=== PATIENT | female | born 1940 | race Caucasian/White ===

== ENCOUNTER → 2017-11-14 | Outpatient (CLI) | payer MEDICARE | END | disposition home or self-care (01) | LOC: CFH 15:38 | PROVIDERS: ATTEND Nurse Practitioner Family | DX: R10.9 Unspecified abdominal pain (principal); M54.9 Dorsalgia, unspecified | CPT/HCPCS: 76770 ==

== ENCOUNTER → 2018-07-03 | Outpatient (CLI) | payer MEDICARE | END | disposition home or self-care (01) | LOC: RAD 12:30 | PROVIDERS: ATTEND Nurse Practitioner Family | DX: E03.1 Congenital hypothyroidism without goiter (principal) | CPT/HCPCS: 70490 ==

== ENCOUNTER → 2019-02-19 | Outpatient (CLI) | payer MEDICARE ==
[~2019-02-19] MED LIST: REGADENOSON 0.4 MG/5 ML SYRINGE ONE
== END | disposition home or self-care (01) ==
LOC: CFH 06:53
PROVIDERS: ATTEND Internal Medicine Cardiovascular Disease
DX: I08.0 Rheumatic disorders of both mitral and aortic valves (principal); I10 Essential (primary) hypertension
CPT/HCPCS: 78452; 93017; 93306; A9502; J2785

== ENCOUNTER 2019-03-07 10:09 | Day surgery (SDC) | payer MEDICARE ==
[~2019-03-07] VITALS: Ht 157.5 cm; Wt 78.0 kg
== END 2019-03-07 13:06 | disposition home or self-care (01) ==
LOC: CACL 10:09
PROVIDERS: ATTEND Internal Medicine Cardiovascular Disease
DX: R55 Syncope and collapse (principal); R07.89 Other chest pain; I10 Essential (primary) hypertension; E03.9 Hypothyroidism, unspecified; E78.5 Hyperlipidemia, unspecified; Z79.890 Hormone replacement therapy; Z79.899 Other long term (current) drug therapy; Z88.0 Allergy status to penicillin; Z88.8 Allergy status to other drugs, medicaments and biological substances; Z85.3 Personal history of malignant neoplasm of breast
CPT/HCPCS: 33285; C1764

== ENCOUNTER 2019-10-19 07:05 | Outpatient (CLI) | payer MEDICARE | END 2019-10-19 23:59 | disposition home or self-care (01) | LOC: CFH 07:05 | PROVIDERS: ATTEND Genetic Counselor, MS | DX: N64.4 Mastodynia (principal) | CPT/HCPCS: 77065; G0279 ==

== ENCOUNTER 2021-02-17 06:25 | Emergency (ER) | payer MEDICARE ==
[~2021-02-17] VITALS: Ht 157.5 cm; Wt 88.1 kg
--- NOTE | 2021-02-17 06:46 | NUR ---
RECTAL BLEEDING FOR 36 HOURS, COLOR IS BIRGHT RED. Addendum: 02/17/21 at 0654 by CLAIRE ASSUMED CARE OF PT. RECTAL BLEEDING FOR 36 HOURS, COLOR IS BIRGHT RED PER PT FOR 36 HOURS. SHE HAS HAD INTERMITTENT NAUSEA AND CRAMPING W/ TENDERNESS IN R/LLQ. BONNIE BARBOUR, CALL LIGHT W/IN REACH.
--- NOTE | 2021-02-17 06:51 | NUR ---
CARE TRANSFERED TO KARON JASON
[2021-02-17] MEDS ORDERED: SODIUM CHLORIDE FLUSH 10ML SYR IVF ONE (07:30)
--- NOTE | 2021-02-17 07:49 | NUR ---
LOOKED ON PT TO START PIV, NOTHING IS PALPABLE AND PT STATES "GOOD LUCK, I AM A HARD STICK LAB CAN'T EVEN DRAW FROM ME. DOCTORS LOOK IN MY FOOT FOR LINES." MD STATES LINE CANNOT WAIT. 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
[2021-02-17 07:59] LABS: BASOPHILS % (AUTO) 0 % (0-1); EOSINOPHILS % (AUTO) 3 % (1-7); LYMPHOCYTES % (AUTO) 21 % (22-44); MEAN PLATELET VOLUME 10.1 fL (7.4-10.4); MONOCYTES % (AUTO) 7 % (2-9); NEUTROPHILS % (AUTO) 69 % (42-75); PLATELET COUNT 189 x10^3/uL (130-400); RED BLOOD COUNT 4.49 x10^6/uL (3.82-5.3); RED CELL DISTRIBUTION WIDTH 13.9 % (9.6-15.2)
[2021-02-17 08:00] LABS: MD NO
[2021-02-17 08:09] LABS: INTERNATIONAL NORMALIZED RATIO 1.01 (0.93-1.1); PROTHROMBIN TIME 10.8 Seconds (9.6-11.5)
[2021-02-17 08:12] LABS: ALBUMIN 3.7 g/dL (3.4-5.0); ANION GAP 6 mmol/L (5-15); CHLORIDE 113 mmol/L (98-107)
[2021-02-17 08:15] LABS: ALANINE AMINOTRANSFERASE 14 U/L (12-78); ALKALINE PHOSPHATASE 128 U/L (45-117); BILIRUBIN,TOTAL 0.9 mg/dL (0.2-1.0); CREATININE 0.89 mg/dL (0.55-1.02); TOTAL PROTEIN 7.1 g/dL (6.4-8.2)
--- NOTE | 2021-02-17 08:22 | NUR ---
15 MINUTES SEARCHING FOR VEIN, ATTEMPTED IN LEFT FA WITH NO LUCK. 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 NADN. CALL LIGHT W/IN REACH.
--- NOTE | 2021-02-17 08:51 | NUR ---
[place] JASON TO TRY IV.
--- NOTE | 2021-02-17 09:33 | NUR ---
CT WAITING FOR IV ACCESS
--- NOTE | 2021-02-17 09:36 | NUR ---
TASK RN ATTEMPTED LINE OTHER RN BUSY, NO SUCCESS. ANOTHER RN ATTEMPTING NOW. MD AND CHARGE UPDATED. NADN, CALL LIGHT W/IN REACH.
[2021-02-17] MEDS ORDERED: OMNIPAQUE 350 MG/ML, 100ML BOTTLE ONE (10:14)
--- NOTE | 2021-02-17 10:15 | NUR ---
PT TO CT
--- NOTE | 2021-02-17 10:21 | NUR ---
PT VS UPDATED, UPDATED THAT WAITING FOR CT TO BE READ, THEY ARE BECOMING ANTSY.
--- NOTE | 2021-02-17 11:12 | NUR ---
PT REQUESTED RN. SHE WAS WONDERING WHAT THE STATUS WAS, SHE HAD HER CT AWHILE AGO. CT HAS IT READ, DR. SIMMS NOTIFIED AND LOOKED UP THE IMPRESSION. SHE IS FOLLOWING UP W/ PT NOW.
--- NOTE | 2021-02-17 12:03 | NUR ---
BEDSIDE TO UPDATE PT
--- NOTE | 2021-02-17 12:17 | NUR ---
ASHLEY TREJO PRESENT
[2021-02-17 12:56] VITALS: BP 193/83
--- NOTE | 2021-02-17 12:57 | NUR ---
Patient given discharge instructions and they have confirmed that they understand the instructions. Patient ambulatory with steady gait.
== END 2021-02-17 12:58 | disposition home or self-care (01) ==
LOC: ED 08:01
DX: K92.2 Gastrointestinal hemorrhage, unspecified (principal); A09 Infectious gastroenteritis and colitis, unspecified; R04.2 Hemoptysis; I10 Essential (primary) hypertension; E03.9 Hypothyroidism, unspecified; Z90.710 Acquired absence of both cervix and uterus
CPT/HCPCS: 36415; 71045; 74177; 80053; 85025; 85610; 85730; 86850; 86900; 93005; 99285; Q9967